=== PATIENT | female | born 1945 | race Caucasian/White ===

== ENCOUNTER 2020-07-10 01:46 | Outpatient (CLI) | payer MEDICARE, BC, SELFPAY ==
--- NOTE | 2020-07-10 08:45 | DI.DEXA_ITS ---
EXAM: XR DEXA BONE DENSITY W/WO ARELY CLINICAL HISTORY: osteoporosis,M81.0 TECHNIQUE: HoloTrusper Horizon C densitometer. COMPARISON: Exams from 2006 through 2010 FINDINGS: The lateral view of the thoracic and lumbar spine shows no evidence of compression fractures. The ayan ne mineral density measurements of the right hip correspond of -2.6 and a femoral neck T-score of -2. 5, in the osteoporotic range. This represents a 6.6 percent increase when compared with 2010 and a 7 .7 percent increase when compared with 2006. The bone mineral density measurements of the lumbar spine correspond to a total T-score of -3.3, in t he osteoporotic range.. The overall bone mineral density of the lumbar spine has increased 13.6 perc ent when compared with 2010 and 24.1 percent increase compared with 2005. The left forearm bone mineral density measurements correspond to a T-score of the the distal 3rd of n egative -4.5 and a total T-score of -4.7, in the osteopenic range. This is not significantly changed from the previous exams. IMPRESSION: Osteoporosis of the lumbar spine and left hip with increase in density when compared with previous ex ams. Stable osteoporosis of the left forearm.
== END 2020-07-10 01:47 ==
LOC: DI 01:46
PROVIDERS: PCP Family Medicine; Visit Provider Family Medicine
DX: M81.0 Age-related osteoporosis without current pathological fracture (principal)
CPT/HCPCS: 77080

== ENCOUNTER 2020-07-10 02:54 | Outpatient (CLI) | payer MEDICARE, BC, SELFPAY ==
[2020-07-10 15:05] LABS: ALT 22 U/L (14-59); AST 26 U/L (15-37); Albumin 4.4 g/dL (3.4-5.0); Alkaline Phosphatase 85 U/L (46-116); Anion Gap 10.2 mmol/L (3-11); BUN 18 mg/dL (7-18); Bilirubin, Total 0.6 mg/dL (0.2-1.0); CO2 26.8 mmol/L (21.0-32.0); CREATININE 0.9 mg/dL (0.55-1.02); Chloride 101 mmol/L (98-107); Glucose 104 mg/dL (74-106); Potassium 4.3 mmol/L (3.5-5.1); Sodium 138 mmol/L (136-145); TSH (W/Ref FT4) 1.79 uIU/mL (0.36-3.74); Total Protein 8.3 g/dL (6.4-8.2)
[2020-07-10 15:20] LABS: Vitamin D 25 Total 42.7 ng/ml (30-100)
[2020-07-11 10:47] LABS: Parathyroid Hormone,Intact 83 pg/mL (19-88)
== END 2020-07-10 02:55 | disposition home or self-care (01) ==
LOC: LBO 02:54
PROVIDERS: PCP Family Medicine; Visit Provider Family Medicine
DX: I10 Essential (primary) hypertension (principal); G47.9 Sleep disorder, unspecified; M81.0 Age-related osteoporosis without current pathological fracture; L40.9 Psoriasis, unspecified; R68.89 Other general symptoms and signs
CPT/HCPCS: 36415; 77080; 80053; 82306; 83970; 84443

== ENCOUNTER 2020-10-16 15:40 | Outpatient (CLI) | payer MEDICARE, BC, SELFPAY ==
--- NOTE | 2020-10-16 15:30 | RT.EKG_ITS ---
APPROVED REPORT Exam: Resting ECG Reason for Exam: Chest Heavy Dizziness Patient Location: O HR:74 bpm ECG Measurements Heart Rate 74 AXIS CA 198 P 60 QRSd 83 QRS 36 QT 398 T 67 QTc 441 Conclusion Sinus rhythm...normal P axis, V-rate 60- 99
[2020-10-16 21:35] LABS: Anion Gap 9.1 mmol/L (3-11); BUN 32 mg/dL (7-18); CO2 25.9 mmol/L (21.0-32.0); CREATININE 0.9 mg/dL (0.55-1.02); Calcium 9.2 mg/dL (8.5-10.1); Chloride 94 mmol/L (98-107); Glucose 94 mg/dL (74-106); Sodium 129 mmol/L (136-145)
== END 2020-10-16 15:41 | disposition home or self-care (01) ==
LOC: DI.CM 15:41
PROVIDERS: PCP Family Medicine; Visit Provider Nurse Practitioner Family
DX: R07.89 Other chest pain (principal); E87.1 Hypo-osmolality and hyponatremia
CPT/HCPCS: 80048; 93010

== ENCOUNTER 2020-10-17 13:38 | Outpatient (CLI) | payer MEDICARE, BC, SELFPAY ==
[2020-10-17 14:19] LABS: Bilirubin Negative (Negative); Blood Negative (Negative); Clarity Clear (Clear); Glucose Negative (Negative); Ketones Negative (Negative); Leukocyte Esterase Trace (Negative); Nitrite Negative (Negative); Specific Gravity 1.015 (1.005-1.025); Urobilinogen 0.2 EU/dL (Up TO 0.2); pH 5.5 (5-8)
[2020-10-17 14:27] LABS: Bacteria Rare HPF (Negative); C & S Indicated? Yes; Casts Negative LPF (Negative); Crystals Negative HPF (Negative); Epithelial Cells Rare HPF (Negative); Mucus Negative (Negative); RBC 0-2 HPF (0-2)
[2020-10-17 15:38] LABS: CREATININE 0.8 mg/dL (0.55-1.02); Calcium 9.2 mg/dL (8.5-10.1); Chloride 92 mmol/L (98-107); Glucose 92 mg/dL (74-106); Sodium 128 mmol/L (136-145)
[2020-10-17 15:39] LABS: BUN 22 mg/dL (7-18)
== END 2020-10-17 13:39 | disposition home or self-care (01) ==
LOC: LBO 13:39
PROVIDERS: PCP Family Medicine; Visit Provider Physician Assistant
DX: E87.1 Hypo-osmolality and hyponatremia (principal); R82.998 Other abnormal findings in urine
CPT/HCPCS: 36415; 80048; 81003; 81015; 87086

== ENCOUNTER 2020-10-22 04:30 | Outpatient (CLI) | payer MEDICARE, BC, SELFPAY ==
[2020-10-22 16:37] LABS: Anion Gap 8.3 mmol/L (3-11); BUN 21 mg/dL (7-18); CO2 25.7 mmol/L (21.0-32.0); Calcium 9.3 mg/dL (8.5-10.1); Chloride 104 mmol/L (98-107); Estimated GFR 53.76 (mL/min/1.73m2); Glucose 89 mg/dL (74-106); Potassium 4.4 mmol/L (3.5-5.1); Sodium 138 mmol/L (136-145)
== END 2020-10-22 04:31 | disposition home or self-care (01) ==
LOC: LBO 04:30
PROVIDERS: PCP Family Medicine; Visit Provider Family Medicine
DX: E87.1 Hypo-osmolality and hyponatremia (principal)
CPT/HCPCS: 36415; 80048

== ENCOUNTER 2021-06-16 16:32 | Outpatient (REF) | payer MEDICARE, SELFPAY ==
[2021-06-18 15:26] LABS: Creatinine, U 36 mg/dL; NTX 80 nmol/L; NTX-Telopedptide, U 25 nmol/mmol
== END 2021-06-16 16:33 | disposition home or self-care (01) ==
LOC: LBN 16:32
PROVIDERS: PCP Family Medicine; Visit Provider Internal Medicine Rheumatology
DX: M81.8 Other osteoporosis without current pathological fracture (principal)
CPT/HCPCS: 82523

== ENCOUNTER 2021-12-01 03:09 | Outpatient (CLI) | payer MEDICARE, SELFPAY ==
[2021-12-01 12:38] LABS: ALT 23 U/L (14-59); AST 22 U/L (15-37); Albumin 3.5 g/dL (3.4-5.0); Alkaline Phosphatase 65 U/L (46-116); Anion Gap 6.9 mmol/L (3-11); BUN 21 mg/dL (7-18); Bilirubin, Total 0.3 mg/dL (0.2-1.0); CO2 26.1 mmol/L (21.0-32.0); CREATININE 0.8 mg/dL (0.55-1.02); Calcium 8.9 mg/dL (8.5-10.1); Chloride 102 mmol/L (98-107); Glucose 85 mg/dL (74-106); Potassium 3.9 mmol/L (3.5-5.1); Sodium 135 mmol/L (136-145); Total Protein 6.9 g/dL (6.4-8.2)
== END 2021-12-01 03:10 | disposition home or self-care (01) ==
LOC: LOS 03:10
PROVIDERS: PCP Family Medicine; Visit Provider Family Medicine
DX: E87.1 Hypo-osmolality and hyponatremia (principal); I10 Essential (primary) hypertension
CPT/HCPCS: 36415; 80053

== ENCOUNTER → 2022-03-16 09:51 | Outpatient (BNVA) | payer MEDICARE, SELFPAY | PROVIDERS: PCP Family Medicine; Referring Provider Family Medicine; Visit Provider Surgery | DX: Z12.11 Encounter for screening for malignant neoplasm of colon (principal); Z12.12 Encounter for screening for malignant neoplasm of rectum; R19.5 Other fecal abnormalities ==

== ENCOUNTER 2022-03-24 10:09 | Observation (INO) | payer MEDICARE, SELFPAY ==
[2022-03-24] VITALS (9 sets, daily range): BP systolic 100–136; BP diastolic 63–89; PULSE 62–114; RESP 16–18; TEMP 36.3–37.2; O2SAT 96–99; BMI 23.3
--- NOTE | 2022-03-24 06:20 | COLE_ITS ---
Date of service: 03/24/22 Time of Service: 08:17 Colonoscopy Report Date of procedure: 03/24/22 Pre-op diagnosis general: + Cologuard test Post-op diagnosis procedure note: other (polyps and diverticulosis) Procedure: Colonoscopy with polypectomy Surgeon: Izabella Wesley Anesthesia Type: General:No Airway Estimated blood loss (mL): 3 Pathology: other (cecal polyps and ascending polyps x2) Complications: None Disposition: same day Indications: The patient? is a pleasant ? 77-year-old female who is here to discuss a screening colonoscopy. ? She had a positive Cologuard test.? She denies any changes in bowel habits, melena, hematochezia, unintentional weight loss or family history of colon cancer.? The procedure and risks were discussed.? The prep was reviewed in detail.? Risks, benefits and complications have been reviewed. Complications include but are not limited to bleeding, pain, perforation, missed small lesion/polyp, sore throat, aspiration and adverse reaction to the medications. Questions were entertained and answered to their satisfaction and they wished to proceed. No guarantees were given or implied. Prep: Miralax/Dulcolax Procedure Start Time: :17 Procedure End Time: 08:40 Retraction Time: 14 minutes Findings: 3 polyps mild diverticulosis Procedure Description: After informed consent was obtained the patient was taken to the procedure room and placed in a left decubitous position. Monitors were applied and a time out was done. The patients name, date of , procedure, allergies to medications and metal in their body was reviewed. The patient was then sedated. Once sedated and comfortable a rectal exam was done. External exam was normal. Internal exam revealed a normal sphincter tone and no palpable masses. The scope was then introduced and retro-flexed. No internal hemorrhoids, polyps or masses were identified on retro-flexion. The scope was then advanced to the cecum without difficulty. The ileocecal valve and appendiceal orifice were identified. The prep was good. The scope was then slowly retracted over 14 minutes back into the rectum. Polyps were removed with cold forceps in the cecum (ileocecal valve) and ascending colon x2. There was mild sigmoid diverticulosis noted. The scope was removed and the patient was woken up and taken back to Same day surgery in stable condition. The patient tolerated the procedure well and there were no immediate complicatio ns. .
--- NOTE | 2022-03-24 06:21 | PDOC.DSDIS_ITS ---
Date of service: 03/24/22 Time of Service: 08:49 Discharge Plan Disposition Patient Disposition: HOME Condition: Good Discharge Details Reason For Visit: colonoscopy Attending Provider: Izabella Wesley Primary Care Provider: Lizzy Marin Home Meds and New Rx's Prescriptions: Continued triamcinolone acetonide 0.1 % cream 1 applic topical BID Qty: 80 0RF Rx Instructions: apply to psoriasis lisinopril 20 mg tablet 20 mg PO DAILY Qty: 90 5RF Discontinued bisacodyl [Dulcolax (bisacodyl)] 5 mg tablet,delayed release (DR/EC) 5 mg PO ONCE Qty: 4 0RF Rx Instructions: Take according to provider's instructions for colonoscopy prep. polyethylene glycol 3350 17 gram/dose powder 17 g PO ONCE Qty: 238 0RF Rx Instructions: To be taken as directed by prescriber's office for colonoscopy prep. Discharge Instructions Instructions: Colorectal Polyps (DC), Diverticulosis (DC) Additional Instructions: Findings: 3 polyps mild diverticulosis Follow up: will depend on pathology results Please call if you develop: fevers >101.5 Nausea or Vomiting Abdominal pain that is not transient Rectal bleeding that is more then a tbsp A hard abdomen and inability to pass gas DAY SURGERY UNIT POST ENDOSCOPY INSTRUCTIONS Instructions for everyone who is given Anesthesia: For your safety, please do the following for the next 24 Hours: a. Do not drive or operate dangerous equipment b. Do not drink alcohol beverages or use any recreational drugs for the first 24 hours or while taking pain medications. The medications in your body may have a reaction that can be dangerous. c. Do not make any important decisions or sign any important papers 1. Generally there are no restrictions on your activity after a day or so has gone by, but you may feel a bit fatigued for a few days. 2. After you arrive home you may have a light meal and return to a normal diet as you can tolerate it without feeling sick to your stomach. 3. After surgery, you may feel pain or discomfort. This should be only tra nsient, but if it persists please contact your doctor. 4. If there are any questions regarding the findings of your procedure, please feel free to contact your doctor. 6. If you are unable to contact your doctor with a problem, contact the hospital at [phone]. 7. Continue all your regular medications unless directed otherwise. I understand the above instructions and have no questions. Signature of Patient or Responsible Adult Escort Date/Time Name of Responsible Adult Escort Signature of Nurse Date/Time Activity:: Activity as Tolerated Diet:: high fiber diet Discharge Orders Discharge Orders: Discharge Order (Routine); Ordered 03/24/22 Ordered By: Izabella Wesley
[2022-03-24] MEDS: Lactated Ringers 1,000 ML 80 ML IV (07:28)
--- NOTE | 2022-03-24 07:33 | W.ANESPRE ---
General Info Date of Service Date Performed: 03/24/22 Height: 5 ft 4 in Weight: 61.6 kg Body Mass Index (BMI): 23.3 Surgical Procedure: Operation Date: 03/24/22 08:20 Proposed Procedure Side Surgeon donell Wesley MD Meds Allergies and Home Medications Allergies Allergy/AdvReac Type Severity Reaction Status Date / Time No Known Allergies Allergy Verified 03/24/22 07:08 Home Medication Medication Instructions Recorded triamcinolone acetonide 0.1 % 1 applic topical BID #80 grams 10/15/21 topical cream lisinopril 20 mg tablet 20 mg PO DAILY #90 tabs 12/07/21 bisacodyl 5 mg tablet,delayed 5 mg PO ONCE #4 tabs 03/16/22 release (Dulcolax (bisacodyl)) polyethylene glycol 3350 17 17 g PO ONCE #238 grams 03/16/22 gram/dose oral powder Current Visit Medications: Current Medications Generic Name Dose Route Start Last Admin Trade Name Freq PRN Reason Stop Dose Admin Hyoscyamine Sulfate 0.125 mg 03/24/22 06:22 Hyoscyamine 0.125 Mg Sl/Oral/Chew SL DIRECTED PRN Ringer's Solution 1,000 mls @ 80 mls/hr 03/24/22 06:00 03/24/22 07:28 IV 04/22/22 23:59 80 mls/hr INFUSION ZULAY Administration IV Miscellaneous Supplies 1 each 03/24/22 06:00 Iv Access IV 04/22/22 23:59 DIRECTED ZULAY Ondansetron HCl 4 mg 03/24/22 06:22 Ondansetron 4 Mg/2 Ml Vial IVP Q4H PRN PRN Nausea / Vomiting Sodium Chloride 0 ml 03/24/22 06:00 Normal Saline Flush 10 Ml Syr IV 04/22/22 23:59 PRN PRN Sodium Chloride 0 ml 03/24/22 06:00 Normal Saline 10 Ml Vial IJ 04/22/22 23:59 DIRECTED PRN Sterile Water 0 ml 03/24/22 06:00 Water,Injection,Sterile 10 Ml Vial IJ 04/22/22 23:59 DIRECTED PRN PFSH Active Problems Active Problems: Problem Status Onset Code Throat disorder 05/12/17 J39.2 Throat clearing 05/12/17 R68.89 Sleep disorder 06/02/15 G47.9 Sensory hearing loss, 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 Reflux esophagitis 07/04/17 K21.0 Psoriasis 09/02/14 L40.9 Osteoporosis M81.0 GERD (gastroesophageal reflux disease) 07/14/17 K21.9 Essential hypertension 08/29/13 I10 Actinic keratoses L57.0 Finger deformity, acquired M20.009 Hyponatremia E87.1 Positive colorectal cancer screening using Cologuard test R19.5 Encounter for colorectal cancer screening Z12.11, Z12.12 Surgical History Surgical History (Updated 03/24/22 @ 07:07 by Shawanda Mckeon) History of colonoscopy History of parathyroidectomy (06/02/15) Parathyroidectomy Tobacco Smoking/Tobacco Use Status: Former Tobacco Use Passive smoking exposure: Yes Second hand exposure: Yes Alcohol Alcohol Intake: current Alcohol intake frequency: a few times a week Alcohol type: wine Substance Use Substance use: Never Substance use type: does not use Vital Signs and Lab Results Vital Signs Most Recent Vital Signs in EMR: Most Recent Vital Signs Temp Pulse Resp BP Pulse Ox 36.4 C L 62 18 125/79 99 03/24/22 07:00 03/24/22 07:00 03/24/22 07:00 03/24/22 07:00 03/24/22 07:00 Lab Results Blood Type / Crossmatch: No Data to Display Complete Blood Count: No Data to Display Complete Metabolic Panel: No Data to Display Liver Function Panel: No Data to Display Coagulation Panel: No Data to Display Cardiac Panel: No Data to Display Arterial Blood Gas: No Data to Display Venous Blood Gas: No Data to Display Pancreas Panel: No Data to Display Thyroid Panel: No Data to Display Infectious Disease: No Data to Display Blood Cultures: No Data to Display Toxicology Panel: No Data to Display Imaging and Studies Imaging and Studies Study information below may be from another EMR and interpreted by another provider. Please see original notes in EMR for more complete details. EKG Summary: DATE/TIME OF SERVICE: 10/16/201601 : 3PERFORMING LOCATION: [facility] APPROVED REPORT Exam: Resting ECG Reason for Exam: Chest Heavy Dizziness Patient Location: O HR:74 bpm ECG Measurements Heart Rate 74 AXIS DE 198 P 60 QRSd 83 QRS 36 QT 398 T67 QTc 441 Conclusion Sinus rhythm...normal P axis, V-rate 60- 99 Anesthesia Assessment and Plan Anesthesia History Personal History: No History of Anesthesia Complications Family History: No Family History of Anesthesia Complications Exercise Tolerance Exercise Tolerance: Metabolic Equivalents>4 Pertinent Negatives Pertinent Negatives: No Symptoms of GERD Cardiac & Pulmonary Exam Cardiac Exam: Normal S1/S2 Heart Sounds Pulmonary Exam: Clear Bilateral Breath Sounds Implantable Cardiac Device Does patient have a Pacemaker or an ICD?: No Airway Exam Known Difficult Airway: No Mallampati Class: 2 Mouth Opening: Normal (> 3cm) Thyromental Distance: Greater than 3 cm Neck Range of Motion: Full ROM Neck Circumference: Normal Teeth Condition: Normal Dentition ASA Classification ASA Score: ASA 2 Emergency Case?: No NPO Status NPO Status: NPO Clears >2 hours, Solids >8 hours Anesthesia Plan Resuscitation Status: Full Code Anesthesia Technique: General Anesthesia Airway Planned: Natural Airway Monitors Used: Standard Monitors
--- NOTE | 2022-03-24 08:26 | BOWEL_PTH ---
PATIENT: Annetta Ramirez LOC: U#:[id number] AGE/SX: 77/F ROOM: 226 RE03/24/[address]: Izabella Wesley MD : 1945 BED: A DIS: 03/25/2022 SPEC #: [id number] RECD: 03/24/22 13:04 STATUS: JUSTICELynne RE #: [id number] MAREK: 03/24/22 08:[address]: Izabella Wesley DEPT: Surgical Specimen RECD BY: Eileen Israel ENTERED: 03/24/22 13:05 SP TYPE: Bowel OTHR DR: Lizzy Marin MD, DC Tissues: 1 - BIOPSY BOWEL 2 - BIOPSY BOWEL Procedures: GROSS AND MICRO LEVEL 4 Comments: [id number]
--- NOTE | 2022-03-24 08:30 | RT.EKG_ITS ---
APPROVED REPORT Exam: Resting ECG Reason for Exam: R/o a-fib Patient Location: O HR:107 bpm ECG Measurements Heart Rate 107 AXIS DE [id number] P [id number] QRSd 78 QRS 35 QT 339 T -36 QTc 453 Conclusion Atrial flutter/fibrillation...A-rate 380, multiple Ps Anteroseptal infarct, age indeterminate...Q >35mS, T neg, V1-V2
--- NOTE | 2022-03-24 10:11 | W.ANESPOSTOP ---
Postoperative Evaluation Date, Time and Location Date Performed: 03/24/22 Time Performed: 10:11 Patient Location: Day Surgery Unit Vital Signs Most Recent Imported Vital Signs: Most Recent Vital Signs Temp Pulse Resp BP Pulse Ox 36.3 C L 108 H 18 103/70 96 03/24/22 09:15 03/24/22 09:15 03/24/22 09:15 03/24/22 09:15 03/24/22 09:15 Pain Score Most Recent Pain Score: Most Recent Pain Score Pain Level 0 03/24/22 09:15 Assessment Mental Status: Awake (Alert & Oriented to Patient Baseline) Airway and Respiratory Function: Patent airway with normal (patient baseline) respiratory exam Cardiovascular Function: Hemodynamically Stable Hydration Status: Adequately Hydrated Nausea & Vomiting: No Nausea or Vomiting Pain: Pt. Denies Any Pain Peripheral Nerve Block: Patient did not receive a nerve block Postoperative Comments:: Pt. will be admitted for new onset atrial fibrillation and worked up by hospitalist. She denies any a-fib history, other than family history of. Denies any associated symptoms (SOB/chest pain etc.). This may have been throughout the case, however due to EKG artifact, it was hard to tell.
--- NOTE | 2022-03-24 10:17 | W.PM.HP.N ---
Date of service: 03/24/22 Time of Service: 10:17 Assessment and Plan Assessment and plan (1) New onset a-fib: Status: Acute Assessment and plan: Discussed case with Dr. Rehman. He feels she should be admitted for obs at least and have a troponin and echo done. He has just admitted 2 ICU patients. I will admit the patient and consult him. Discussed the plan with Annetta. Labs and ECHO ordered (2) Essential hypertension: Status: Chronic (3) GERD (gastroesophageal reflux disease): Status: Chronic History of Present Illness Narrative: Annetta is a pleasant 77-year-old female who came to the hospital this morning for a colonoscopy. During the colonoscopy she was noted to be in A. fib. Once she woke up from the sedation she continued to be in A. fib an EKG was done. Patient did not complain of chest pain or shortness of breath. She has never had A. fib before. She does tell me that her mother and brother both had A. fib. She takes a small dose of lisinopril for hypertension and that is her only medication. She has never noticed any palpitations. She is quite an active 77-year-old who does a lot of gardening and walking. EKG confirmed atrial fibrillation/atrial flutter with a question of anterior lateral infarct which might have been old. Review of Systems All systems reviewed & are unremarkable except as noted in HPI and below PFSH All Active Problems (Updated 03/24/22 @ 13:06 by Izabella Wesley MD) New onset a-fib (Acute) Throat disorder (Acute 05/12/17) Throat clearing (Acute 05/12/17) Sleep disorder (Chronic 06/02/15) Sensory hearing loss, 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) Reflux esophagitis (Chronic 07/04/17) Psoriasis (Chronic 09/02/14) Osteoporosis (Chronic) Dexa/2005-T-4.5; 2007 T-4.3; 2009-T-4.2; 2011--4.7 SEES SUNNI GERD (gastroesophageal reflux disease) (Chronic 07/14/17) Essential hypertension (Chronic 08/29/13) Actinic keratoses (Acute) Finger deformity, acquired (Acute) Hyponatremia (Acute) Positive colorectal cancer screening using Cologuard test (Acute) Encounter for colorectal cancer screening (Acute) Surgical History (Updated 03/24/22 @ 13:04 by Izabella Wesley MD) History of colonoscopy History of parathyroidectomy (06/02/15) Parathyroidectomy S/P colonoscopy (~03/24/22) Family History Mother , 68 Depression Bladder cancer Father , 83 Heart disease PACEMAKER Stroke MILD Pancreatic cancer Sister Stroke TIA Brother Heart disease Myocardial infarction Maternal Grandfather , 84 Myocardial infarction Parkinson's disease Paternal Grandfather , 86 Heart disease Parkinson's disease Paternal Grandmother Heart disease A-FIB Depression Daughter Depression Brother No problems noted. Brother No problems noted. Daughter No problems noted. Social History Smoking/Tobacco Use Status: Former Tobacco Use tobacco type: cigarettes Quit Date: 05/30/1964 Tobacco: How many years used: 4 Second Hand Exposure: Yes Smoking risk assessment performed?: Yes Alcohol Intake: current Alcohol Intake frequency: a few times a week Alcohol type: wine Drug use: Never Substance use type: does not use Caregiver/Support person: No Household members: none Housing: house Communication Needs: None and Hard of Hearing Do you need help understanding health information?: Rarely Pets and animals: No Sexually active: No Do you think of yourself as: straight/heterosexual Current gender identity: female What is your relationship status?: How often do you talk on the phone with friends or family?: three or more times per week How often do you get together with friends or relatives?: three or more times per week How often do you attend samaritan or scientology services?: 4 or more times per year Do you belong to any clubs or organized social groups?: yes Panel score (0-1 are the most socially isolated patients): 3 What type of physical activity do you participate in: walking and other Details: [employer], PT gym, snowshoeing Duration: 30-45 minutes/day Frequency: 5-6 times per week Laxmi/Roman Catholic: Hoahaoism Special laxmi needs: No Seatbelt use: always Helmet use: Yes Helmet use: sometimes Drive intox or ride w/intox seasonal delivery driver: No Do you feel safe at home: Yes Do you feel safe in your relationship?: Yes Meds Allergies and Home Medications Allergies Allergy/AdvReac Type Severity Reaction Status Date / Time No Known Allergies Allergy Verified 03/24/22 07:08 Home Medications Medication Instructions Recorded Confirmed Type triamcinolone acetonide 0.1 % 1 applic topical BID #80 grams 10/15/21 03/23/22 Rx topical cream lisinopril 20 mg tablet 20 mg PO DAILY #90 tabs 12/07/21 03/24/22 Rx Exam Const General: comfortable and no acute distress HENMT Head: normocephalic and atraumatic Resp Effort & Inspection: normal respiratory effort Auscultation: clear to auscultation bilaterally Cardio Rate: regular rate and tachycardic Rhythm: abnormal rhythm Results Imaging Additional studies: ECHO- pending Labs Result diagrams: 03/24/22 10:49 03/24/22 10:49 Last Vital Signs Temp 97.3 F L 03/24/22 09:15 Pulse 108 H 03/24/22 09:15 Resp 18 03/24/22 09:15 BP 103/70 03/24/22 09:15 Pulse Ox 96 03/24/22 09:15
[2022-03-24 10:28] LABS: Source Nasal/Nares
[2022-03-24 10:56] LABS: Abs Immature Grans 0.01 10^3/uL (0.0-0.06); Absolute Basophil Count 0.06 10^3/uL (0.0-0.2); Absolute Eosinophil Count 0.07 10^3/uL (0.0-0.7); Absolute Lymphocyte Count 1.11 10^3/uL (1.2-3.4); Absolute Monocyte Count 0.26 10^3/uL (0.1-0.8); Absolute Neutrophil Count 2.56 10^3/uL (1.2-6.7); Basophils % 1.5; Eosinophils % 1.7; HCT 41.2 % (36.0-46.0); HGB 13.2 g/dL (11.2-15.7); Immature Grans % 0.2; Lymphocytes % 27.3; MCH 30.6 pg (27.0-33.0); MCV 95 fL (80-95); MPV 10.6 fL (8.0-11.0); Monocytes % 6.4; Neutrophils % 62.9; Platelet Count 187 10^3/uL (130-400); RBC 4.32 10^6/uL (3.93-5.22); RDW 13.2 % (11.7-14.6); RDW-SD 46.9 fL; WBC 4.07 10^3/uL (4.4-10.8)
[2022-03-24 11:11] LABS: PTT Activated 24.5 sec (21.0-27.5); Prothrombin Time 10.4 sec (9.3-11.0)
[2022-03-24 11:14] LABS: ALT 17 U/L (14-59); AST 21 U/L (15-37); Albumin 3.5 g/dL (3.4-5.0); Alkaline Phosphatase 77 U/L (46-116); Anion Gap 7.3 mmol/L (3-11); BUN 12 mg/dL (7-18); Bilirubin, Total 0.4 mg/dL (0.2-1.0); CO2 23.7 mmol/L (21.0-32.0); CREATININE 0.8 mg/dL (0.55-1.02); Calcium 9.4 mg/dL (8.5-10.1); Chloride 104 mmol/L (98-107); Glucose 101 mg/dL (74-106); Potassium 4.2 mmol/L (3.5-5.1); Sodium 135 mmol/L (136-145); Total Protein 7.5 g/dL (6.4-8.2)
[2022-03-24 11:16] LABS: COVID-19 PCR Negative (Negative)
[2022-03-24 11:19] LABS: Troponin I < 50 ng/L (<or=60)
--- NOTE | 2022-03-24 11:43 | NUR.NOTE ---
Nursing Note: It was found during colonoscopy procedure that pt was in Afib. Pt was transferred to [facility] for additional testing including lab work and echo cardiogram. Pt is asymptomatic , denying chest pain ,sob or palpitations. Dr Wesley in to see pt.
[2022-03-24 14:43] LABS: Troponin I < 50 ng/L (<or=60)
--- NOTE | 2022-03-24 16:48 | PDOC.CMIN ---
- If Service Date Differs Date of service: 03/24/22 Time of Service: 16:48 Care Management Initial Assess REASON FOR HOSPITALIZATION:: New onset A-Fib PAST MEDICAL HISTORY/PAST SURGICAL HISTORY:: Medical History . Acute deep vein thrombosis (DVT) of right lower extremity. most recent DVT in right foot 04/25/20. Amaurosis fugax, right eye. 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 NOLAN (dyspnea on exertion). Family history of multiple endocrine neoplasia [MEN] syndrome. 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 Headache. History of melanoma. Hypertension. Iritis. Ketonuria. Knee pain, right. Localized swelling of right lower leg. Loss of vision. Pt. reports for last month he has had occasional loss of vision in R eye. Pt. states PCP and opthamologist are working on it, no diagnosis at this time. Everardo Cerrato, [employer] G[employer] SERVICE AGENT, aware. 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 Obesity. Pain in right lower leg. Pleural effusion, right. Right upper quadrant abdominal pain. Right-sided chest pain. Tinnitus, right. Tremor. Unexplained weight loss. Surgical History . Colonoscopy - IV Sedation. 2008- normal. EGD - MAC (10/04/16). Hx of detached retina repair. Hx of melanoma excision. Thoracentesis (01/12/18) PREVIOUS FUNCTIONAL STATUS/SOCIAL/FAMILY SUPPORTS:: Jailene has refused mulitple interventions including use of IS, CPAP. Eliquis recommended upon discharge; discussion with PCP/RNCC regarding patient's hesitancy, Dr. Marin will discuss upon follow up on 04/01/22. CURRENT FUNCTIONAL STATUS:: Jailene is preparing for discharge, up independently, looking forward to returning home. ADVANCE DIRECTIVES:: AD on file, Jailene reports NAMITA Bradshaw. AD document states agent as Halima, alternate as Yadi Has patient been provided with info about the portal/API?: Yes Did the patient sign up for the portal?: Yes CODE STATUS:: Full Code INSURANCE COVERAGE / FINANCIAL ISSUES:: BC/BS [facility] Advantage PRIMARY CARE PHYSICIAN:: Lizzy Marin POTENTIAL DISCHARGE NEEDS:: Follow up appointments (PCP F/U in 04/01/22) PATIENT/FAMILY EDUCATION NEEDS:: Review discharge instructions, discuss Ask Me Three. ANTICIPATED BARRIERS TO DISCHARGE:: None identified. TRANSPORTATION:: Via private vehicle with a friend. PLAN:: Anticipate Jailene will return home when ready per MD. Awaiting ECHO, troponin trend, per MD. No additional services anticipated, she will follow up with her PCP and plan of care as prescribed.
[2022-03-24 18:40] LABS: Lab Add On Test DONE
[2022-03-24 19:04] LABS: TSH 3.03 uIU/mL (0.36-3.74)
--- NOTE | 2022-03-24 20:26 | MCONE_ITS ---
Date of service: 03/24/22 Time of Service: 20:26 Assessment and Plan Assessment and plan (1) Paroxysmal A-fib: Status: Acute Assessment and plan: Monitor on telemetry overnight and set her up for 30-day cardiac event recorder upon discharge. Arrange outpatient follow-up with Dr. Rivera. Recommend out patient PSG and stress MPI. Patient will consider DOAC use and discuss w/ cardiology. No need to begin BB urgently, can get event recorder first. History of Present Illness History of Present Illness Chief Complaint: atrial fibrillation Narrative: 77 yr old female w/ PMH of colon polyps and HTN but otherwise no cardiac hx. She underwent elective c-scope this morning by Dr. Wesley for polyp surveillance. Procedure went well but patient went into PAF w/ HR in the 90's to low 100's. She never was hypotensive. Dr. Wesley came to me for advice on post operative management of this sudden change in her rhythm. I advised her to admit her on telemetry overnight, check echocardiogram and TSH and serial troponin I levels and monitor her overnight and if need be we can start her on lopressor. Patient denies any chest pain or pressure or dyspnea. Her atrial fibrillation rhythm spontaneously converted to NSR @ 11:48 am and she has remained in NSR. I reviewed all of her labs and echocardiogram w/ the patient. She has normal LV and RV size and function w/ no valvular abnormalities and no regional wall motion abnormalities. LVEF is 69%. TSH is normal and CBC and CMP and magnesium and troponin I levels were all normal. She does not have COPD and her TSH was normal and echo showed no structural abnormalities, however, she tells me that around 2009 she had a sleep study for which she says was equivocal and was told that she could go on CPAP but she chose not to do so . I am recommending her getting a 30 day event recorder, follow up w/ cardiology as outpatient and to consider going on a DOAC. I did her [id number] score is 4 which puts her at high risk for thromboembolic events. Her annual risk of stroke w/ use of Apixaban is 1.7% which is absolute risk redu ction of 4.8% i.e. w/out apixaban her risk is 6.5%. I think that she ought to have follow up PSG to re-evaluate her possible EBONY. She also needs stres MPI. 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) Reflux esophagitis (Chronic 07/04/17) Psoriasis (Chronic 09/02/14) Osteoporosis (Chronic) Dexa/2005-T-4.5; 2007 T-4.3; 2009-T-4.2; 2011--4.7 SEES SUNNI GERD (gastroesophageal reflux disease) (Chronic 07/14/17) Essential hypertension (Chronic 08/29/13) Actinic keratoses (Acute) Finger deformity, acquired (Acute) Hyponatremia (Acute) Positive colorectal cancer screening using Cologuard test (Acute) Encounter for colorectal cancer screening (Acute) Surgical History History of colonoscopy History of parathyroidectomy (06/02/15) Parathyroidectomy S/P colonoscopy (~03/24/22) Family History Mother , 68 Depression Bladder cancer Father , 83 Heart disease PACEMAKER Stroke MILD Pancreatic cancer Sister Stroke TIA Brother Heart disease Myocardial infarction Maternal Grandfather , 84 Myocardial infarction Parkinson's disease Paternal Grandfather , 86 Heart disease Parkinson's disease Paternal Grandmother Heart disease A-FIB Depression Daughter Depression Brother No problems noted. Brother No problems noted. Daughter No problems noted. Social History Smoking/Tobacco Use Status: Former Tobacco Use tobacco type: cigarettes Quit Date: 05/30/1964 Tobacco: How many years used: 4 Second Hand Exposure: Yes Smoking risk assessment performed?: Yes Alcohol Intake: current Alcohol Intake frequency: a few times a week Alcohol type: wine Drug use: Never Substance use type: does not use Caregiver/Support person: No Household members: none Housing: house Communication Needs: None and Hard of Hearing Do you need help understanding health information?: Rarely Pets and animals: No Sexually active: No Do you think of yourself as: straight/heterosexual Current gender identity: female What is your relationship status?: How often do you talk on the phone with friends or family?: three or more times per week How often do you get together with friends or relatives?: three or more times per week How often do you attend spiritism or scientology services?: 4 or more times per year Do you belong to any clubs or organized social groups?: yes Panel score (0-1 are the most socially isolated patients): 3 What type of physical activity do you participate in: walking and other Details: [employer], PT gym, snowshoeing Duration: 30-45 minutes/day Frequency: 5-6 times per week Laxmi/Muslim: Religion Special laxmi needs: No Seatbelt use: always Helmet use: Yes Helmet use: sometimes Drive intox or ride w/intox public transit bus driver: No Do you feel safe at home: Yes Do you feel safe in your relationship?: Yes Exam Narrative Exam Narrative: Thin pleasant elderly female who is alert and oriented person place time circumstance. HEENT is unremarkable Neck is supple nontender no JVD normal carotid pulses no thyromegaly Lungs are clear to auscultation Heart is regular rate and rhythm without murmur rub or gallop Abdomen soft and nontender Extremities without peripheral cyanosis or edema. Results Last Vital Signs Temp 36.5 C 03/24/22 19:57 Pulse 86 03/24/22 19:57 Resp 18 03/24/22 19:57 BP 136/89 03/24/22 19:57 Pulse Ox 96 03/24/22 19:57 Labs Result diagrams: 03/24/22 10:49 03/24/22 10:49 Labs: Laboratory Results - last 24 hr 03/24/22 03/24/22 03/24/22 10:13 10:49 10:49 WBC 4.07 L RBC 4.32 Hgb 13.2 Hct 41.2 MCV 95 MCH 30.6 MCHC 32.0 RDW 13.2 Plt Count 187 MPV 10.6 Immature Gran % 0.2 Neutrophils % 62.9 Lymphocytes % 27.3 Monocytes % 6.4 Eosinophils % 1.7 Basophils % 1.5 Nucleated RBC % 0.0 Absolute Neutrophils 2.56 Absolute Lymphocytes 1.11 L Absolute Monocytes 0.26 Absolute Eosinophils 0.07 Absolute Basophils 0.06 PT INR APTT Sodium 135 L Potassium 4.2 Chloride 104 Carbon Dioxide 23.7 Anion Gap 7.3 BUN 12 Creatinine 0.8 Est GFR (CKD-EPI 2020) 74.90 Glucose 101 Calcium 9.4 Magnesium Total Bilirubin 0.4 AST 21 ALT 17 Alkaline Phosphatase 77 Troponin I Total Protein 7.5 Albumin 3.5 TSH COVID-19 Source Nasal/Nares SARS-CoV-2 (PCR) Negative Add-On Test Request 03/24/22 03/24/22 03/24/22 10:49 10:49 14:17 WBC RBC Hgb Hct MCV MCH MCHC RDW Plt Count MPV Immature Gran % Neutrophils % Lymphocytes % Monocytes % Eosinophils % Basophils % Nucleated RBC % Absolute Neutrophils Absolute Lymphocytes Absolute Monocytes Absolute Eosinophils Absolute Basophils PT 10.4 INR 1.0 APTT 24.5 Sodium Potassium Chloride Carbon Dioxide Anion Gap BUN Creatinine Est GFR (CKD-EPI 2020) Glucose Calcium Magnesium Total Bilirubin AST ALT Alkaline Phosphatase Troponin I < 50 < 50 Total Protein Albumin TSH COVID-19 Source SARS-CoV-2 (PCR) Add-On Test Request 03/24/22 03/24/22 14:17 14:17 WBC RBC Hgb Hct MCV MCH MCHC RDW Plt Count MPV Immature Gran % Neutrophils % Lymphocytes % Monocytes % Eosinophils % Basophils % Nucleated RBC % Absolute Neutrophils Absolute Lymphocytes Absolute Monocytes Absolute Eosinophils Absolute Basophils PT INR APTT Sodium Potassium Chloride Carbon Dioxide Anion Gap BUN Creatinine Est GFR (CKD-EPI 2020) Glucose Calcium Magnesium 2.0 Total Bilirubin AST ALT Alkaline Phosphatase Troponin I Total Protein Albumin TSH 3.03 COVID-19 Source SARS-CoV-2 (PCR) Add-On Test Request DONE
[2022-03-25 01:10] VITALS: PULSE 70
[2022-03-25 06:59] VITALS: PULSE 76
[2022-03-25 07:13] VITALS: BP 137/83; PULSE 72; RESP 18; TEMP 36.3; O2SAT 96
[2022-03-25] MEDS: Normal Saline Flush 10 ML SYR IV (07:50)
[2022-03-25 09:27] LABS: Abs Immature Grans 0.01 10^3/uL (0.0-0.06); Absolute Basophil Count 0.07 10^3/uL (0.0-0.2); Absolute Eosinophil Count 0.13 10^3/uL (0.0-0.7); Absolute Lymphocyte Count 1.57 10^3/uL (1.2-3.4); Absolute Monocyte Count 0.37 10^3/uL (0.1-0.8); Absolute Neutrophil Count 2.55 10^3/uL (1.2-6.7); Basophils % 1.5; Eosinophils % 2.8; HCT 41.6 % (36.0-46.0); HGB 13.3 g/dL (11.2-15.7); Immature Grans % 0.2; Lymphocytes % 33.4; MCH 30.3 pg (27.0-33.0); MCV 95 fL (80-95); MPV 10.5 fL (8.0-11.0); Monocytes % 7.9; Neutrophils % 54.2; Platelet Count 214 10^3/uL (130-400); RBC 4.39 10^6/uL (3.93-5.22); RDW 13.3 % (11.7-14.6); RDW-SD 46.4 fL
[2022-03-25 10:04] LABS: Anion Gap 6.2 mmol/L (3-11); BUN 17 mg/dL (7-18); CO2 28.8 mmol/L (21.0-32.0); Calcium 9.5 mg/dL (8.5-10.1); Chloride 104 mmol/L (98-107); Estimated GFR 57.31 (mL/min/1.73m2); Glucose 108 mg/dL (74-106); Magnesium 2.1 mg/dL (1.8-2.4); Potassium 4.6 mmol/L (3.5-5.1); Sodium 139 mmol/L (136-145)
[2022-03-25 11:22] VITALS: BP 139/86; PULSE 69; RESP 16; TEMP 36.8; O2SAT 99
--- NOTE | 2022-03-25 11:42 | CHAPLAIN ---
Jailene was dressed and up walking around her room. She is hoping to be discharged today. She came in yesterday for a routine colonoscopy and and was surprised to be admitted because of AFib. She said AFib hasn't been detected since. Jailene is very involved in her community and her latter day, the evangelical latter day in [place]. Their conduit mechanic resigned recently due to conflict initiated by conservative members of the latter day and Jailene is sadden by her conduit mechanic's leaving and the direction the latter day is taking.
--- NOTE | 2022-03-25 12:50 | W.PM.DS.N ---
Date of service: 03/25/22 Time of Service: 14:19 DS: Diagnosis Discharge Diagnosis (1) Paroxysmal A-fib: Status: Acute Asessment and Plan: We talked about the risk of stroke with paroxysmal atrial fibrillation. She understands the role of apixaban and stroke reduction, and at this time she would prefer to forego that treatment and consider the risks and benefits of this therapy with her primary care physician and solar sales associate. She will wear a 30-day event monitor. Discharge Plan Disposition Patient Disposition: HOME Condition: Good Discharge Details Reason For Visit: New Onset Afib Admit Date/Time: 03/24/22 10:09 Admit Provider: Izabella Wesley Attending Provider: Izabella Wesley Primary Care Provider: Lizzy Marin [facility] Hospital Course: Annetta is a 77-year-old woman who presents for colonoscopy. In the periprocedural time, she developed some atrial fibrillation. She was admitted to the hospital, and evaluated with telemetry overnight. She returned to sinus rhythm, and remained hemodynamically stable through the night. Home Meds and New Rx's Prescriptions: New Eliquis 5 mg tablet 5 mg PO BID Qty: 60 3RF Continued triamcinolone acetonide 0.1 % cream 1 applic topical BID Qty: 80 0RF Rx Instructions: apply to psoriasis lisinopril 20 mg tablet 20 mg PO DAILY Qty: 90 5RF Discontinued bisacodyl [Dulcolax (bisacodyl)] 5 mg tablet,delayed release (DR/EC) 5 mg PO ONCE Qty: 4 0RF Rx Instructions: Take according to provider's instructions for colonoscopy prep. polyethylene glycol 3350 17 gram/dose powder 17 g PO ONCE Qty: 238 0RF Rx Instructions: To be taken as directed by prescriber's office for colonoscopy prep. Discharge Instructions Instructions: A-fib (Atrial Fibrillation) (DC), Diverticulosis (DC), Colorectal Polyps (DC) Additional Instructions: Findings: 3 polyps mild diverticulosis Follow up: will depend on pathology results Please call if you develop: fevers >101.5 Nausea or Vomiting Abdominal pain that is not transient Rectal bleeding that is more then a tbsp A hard abdomen and inability to pass gas DAY SURGERY UNIT POST ENDOSCOPY INSTRUCTIONS Instructions for everyone who is given Anesthesia: For your safety, please do the following for the next 24 Hours: a. Do not drive or operate dangerous equipment b. Do not drink alcohol beverages or use any recreational drugs for the first 24 hours or while taking pain medications. The medications in your body may have a reaction that can be dangerous. c. Do not make any important decisions or sign any important papers 1. Generally there are no restrictions on your activity after a day or so has gone by, but you may feel a bit fatigued for a few days. 2. After you arrive home you may have a light meal and return to a normal diet as you can tolerate it without feeling sick to your stomach. 3. After surgery, you may feel pain or discomfort. This should be only transient, but if it persists please contact your doctor. 4. If there are any questions regarding the findings of your procedure, please feel free to contact your doctor. 6. If you are unable to contact your doctor with a problem, contact the hospital at [phone]. 7. Continue all your regular medications unless directed otherwise. I understand the above instructions and have no questions. Signature of Patient or Responsible Adult Escort Date/Time Name of Responsible Adult Escort Signature of Nurse Date/Time Stand Alone Forms: [facility] ([facility]), Nursing Discharge Form Referrals: Lizzy Marin MD, [place] [Primary Care Provider] - 04/01/22 9:00 am Matilde Rivera MD [ [facility] STAFF PHYSICIAN] - (The office will call you with an appointment after reviewing your records.) Izabella Wesley MD [ [facility] STAFF PHYSICIAN] - 04/09/22 8:45 am Activity:: Activity as Tolerated Equipment/Supplies:: No Equipment Needed Diet:: high fiber diet Discharge Orders Discharge Orders: Discharge Order (Routine); Ordered 03/25/22 Ordered By: Aj Qiu Other Ambulatory Orders: NM MPI rest & stress day 2 (Routine) Timeframe: 2 Weeks Facility: [facility] - Location: DIAGNOSTIC IMAGING Ordered By: Edith Reyna Discharge Data Discharge Date/Time-TO BE ENTERED AT DEPARTURE: 03/25/22 14:06 DS: Summary Time Spent with Patient providing and/or coordinating discharge services: Greater than 30 minutes Status at Discharge Functional status at discharge: independent ambulation Overall status at discharge: patient is back to baseline Mental Status: mental status grossly normal Speech and Movement: speech and movement normal Mood: congruent mood Affect: normal affect Exam Const General: cooperative, healthy appearing and comfortable Orientation: awake and oriented x3 Eyes General: appearance normal, both eyes and all related structures Conjunctivae: conjunctivae normal Sclera: sclerae normal Resp Effort & Inspection: normal respiratory effort and able to speak in complete sentences Cardio Jugular venous pressure: no JVD Rate: regular rate GI Inspection: non-distended Palpation: soft, no guarding, no hernias and nontender Auscultation: normal bowel sounds Skin General skin exam: normal turgor Neuro General: patient alert, patient awake and patient oriented x3 Cognition: normal cognition Extrem Right lower extremity: no edema Left lower extremity: no edema Psych Mental Status: mental status grossly normal Speech and Movement: speech and movement normal Mood: congruent mood Affect: normal affect DS: Data Vitals/I&O Vitals and I&O: Vital Signs Temperature 98.2 F 03/25/22 11:22 Temperature Source Tympanic 03/25/22 11:22 Pulse 69 03/25/22 11:22 Pulse Rhythm Regular 03/25/22 08:05 Respiratory Rate 16 03/25/22 11:22 Respiratory Effort 03/25/22 08:05 Respiratory Depth Normal 03/25/22 08:05 Respiratory Pattern Normal 03/25/22 08:05 Blood Pressure 139/86 03/25/22 11:22 Pulse Oximetry 99 03/25/22 11:22 Oxygen Delivery Method Room Air 03/25/22 11:22 Oxygen Flow Rate 0 03/25/22 11:22 Pain Level 0 03/25/22 11:22 Comment 03/25/22 07:13 Intake & Output 03/24/22 03/25/22 03/25/22 23:59 11:59 23:59 Intake Total 1700 / 2620 880 / 880 Balance 1700 / 2620 880 / 880 Intake: IV 810 / 1010 Oral 890 / 1610 870 / 870 Other: Urine Color Yellow Urine Appearance Clear Clear Urine Odor Normal Comment pt reports voiding in toilet without difficulty Voiding Methods Toilet Toilet Data Completed and Pending Labs on day of discharge: Labs from last 24 hours 03/25/22 03/25/22 03/24/22 10:00 09:18 14:17 WBC 4.70 RBC 4.39 Hgb 13.3 Hct 41.6 MCV 95 MCH 30.3 MCHC 32.0 RDW 13.3 Plt Count 214 MPV 10.5 Immature Gran % 0.2 Neutrophils % 54.2 Lymphocytes % 33.4 Monocytes % 7.9 Eosinophils % 2.8 Basophils % 1.5 Nucleated RBC % 0.0 Absolute Neutrophils 2.55 Absolute Lymphocytes 1.57 Absolute Monocytes 0.37 Absolute Eosinophils 0.13 Absolute Basophils 0.07 Sodium 139 Potassium 4.6 Chloride 104 Carbon Dioxide 28.8 Anion Gap 6.2 BUN 17 Creatinine 1.0 Est GFR (CKD-EPI 2020) 57.31 Glucose 108 H Calcium 9.5 Magnesium 2.1 2.0 Troponin I TSH 3.03 Add-On Test Request 03/24/22 03/24/22 14:17 14:17 WBC RBC Hgb Hct MCV MCH MCHC RDW Plt Count MPV Immature Gran % Neutrophils % Lymphocytes % Monocytes % Eosinophils % Basophils % Nucleated RBC % Absolute Neutrophils Absolute Lymphocytes Absolute Monocytes Absolute Eosinophils Absolute Basophils Sodium Potassium Chloride Carbon Dioxide Anion Gap BUN Creatinine Est GFR (CKD-EPI 2020) Glucose Calcium Magnesium Troponin I < 50 TSH Add-On Test Request DONE PFS All Active Problems (Updated 03/24/22 @ 20:56 by Fer Rehman MD) Paroxysmal A-fib (Acute) New onset a-fib (Acute) Throat disorder (Acute 05/12/17) Throat clearing (Acute 05/12/17) Sleep disorder (Chronic 06/02/15) Sensory hearing loss, 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) Reflux esophagitis (Chronic 07/04/17) Psoriasis (Chronic 09/02/14) Osteoporosis (Chronic) Dexa/2005-T-4.5; 2007 T-4.3; 2009-T-4.2; 2011--4.7 SEES SUNNI GERD (gastroesophageal reflux disease) (Chronic 07/14/17) Essential hypertension (Chronic 08/29/13) Actinic keratoses (Acute) Finger deformity, acquired (Acute) Hyponatremia (Acute) Positive colorectal cancer screening using Cologuard test (Acute) Encounter for colorectal cancer screening (Acute) Surgical History History of colonoscopy History of parathyroidectomy (06/02/15) Parathyroidectomy S/P colonoscopy (~03/24/22) Family History Mother , 68 Depression Bladder cancer Father , 83 Heart disease PACEMAKER Stroke MILD Pancreatic cancer Sister Stroke TIA Brother Heart disease Myocardial infarction Maternal Grandfather , 84 Myocardial infarction Parkinson's disease Paternal Grandfather , 86 Heart disease Parkinson's disease Paternal Grandmother Heart disease A-FIB Depression Daughter Depression Brother No problems noted. Brother No problems noted. Daughter No problems noted. Social History Smoking/Tobacco Use Status: Former Tobacco Use tobacco type: cigarettes Quit Date: 05/30/1964 Tobacco: How many years used: 4 Second Hand Exposure: Yes Smoking risk assessment performed?: Yes Alcohol Intake: current Alcohol Intake frequency: a few times a week Alcohol type: wine Drug use: Never Substance use type: does not use Caregiver/Support person: No Household members: none Housing: house Communication Needs: None and Hard of Hearing Do you need help understanding health information?: Rarely Pets and animals: No Sexually active: No Do you think of yourself as: straight/heterosexual Current gender identity: female What is your relationship status?: How often do you talk on the phone with friends or family?: three or more times per week How often do you get together with friends or relatives?: three or more times per week How often do you attend bahai or baptism services?: 4 or more times per year Do you belong to any clubs or organized social groups?: yes Panel score (0-1 are the most socially isolated patients): 3 What type of physical activity do you participate in: walking and other Details: [employer], PT gym, snowshoeing Duration: 30-45 minutes/day Frequency: 5-6 times per week Laxmi/Cheondoism: Christianity Special laxmi needs: No Seatbelt use: always Helmet use: Yes Helmet use: sometimes Drive intox or ride w/intox hi lo driver: No Do you feel safe at home: Yes Do you feel safe in your relationship?: Yes
== END 2022-03-25 14:06 | disposition home or self-care (01) ==
LOC: MS 10:49
PROVIDERS: Internal Medicine; Admitting Provider Surgery; PCP Family Medicine; Visit Provider Surgery
PROC: 0DJD8ZZ Inspection of Lower Intestinal Tract, Via Natural or Artificial Opening Endoscopic (ICD-10-PCS; CPT 45378; principal; 2022-03-24 08:15)
DX: I48.0 Paroxysmal atrial fibrillation (principal); D17.5 Benign lipomatous neoplasm of intra-abdominal organs; D12.2 Benign neoplasm of ascending colon; R19.5 Other fecal abnormalities; L40.9 Psoriasis, unspecified; E89.2 Postprocedural hypoparathyroidism; Z87.891 Personal history of nicotine dependence; I10 Essential (primary) hypertension; I48.92 Unspecified atrial flutter; K21.00 Gastro-esophageal reflux disease with esophagitis, without bleeding; E87.1 Hypo-osmolality and hyponatremia; H90.3 Sensorineural hearing loss, bilateral; M81.0 Age-related osteoporosis without current pathological fracture
CPT/HCPCS: 45380; 36415; 80048; 80053; 87635; 88305; 96360; 96361; 99217; 99219; 83735; 84443; 84484; 85025; 85610; 85730; 93005; 93010; 93306; 99220; G0378

== ENCOUNTER 2022-03-25 13:08 | Outpatient (CLI) | payer MEDICARE, SELFPAY ==
--- NOTE | 2022-04-29 14:48 | W.CARDEVENT ---
Date of service: 04/29/22 Time of Service: 14:49 Cardiac Event Recorder Referring Provider:: Lizzy Marin Indications:: Palpitations Cardiac Event Note: This is a 30-day cardiac event record reportedly ordered for palpitations Predominant rhythm was sinus with an average heart rate of 73. Minimum was 57, maximum 140 There were rare atrial and ventricular ectopic beats There was no atrial fibrillation no high-grade AV block no pauses greater than 3 seconds No patient symptoms were reported that corresponded to any dysrhythmia
== END 2022-03-25 13:09 | disposition home or self-care (01) ==
LOC: CARDOPNVT 13:08
PROVIDERS: PCP Family Medicine; Visit Provider Family Medicine
DX: I48.0 Paroxysmal atrial fibrillation (principal)
CPT/HCPCS: 93270

== ENCOUNTER 2022-12-13 14:12 | Outpatient (CLI) | payer MEDICARE, SELFPAY ==
--- NOTE | 2022-12-13 14:00 | RT.EKG_ITS ---
APPROVED REPORT Exam: Resting ECG Reason for Exam: palpitations Patient Location: O HR:63 bpm ECG Measurements Heart Rate 63 AXIS MN 177 P 9 QRSd 77 QRS 20 QT 390 T 51 QTc 400 Conclusion Sinus rhythm...normal P axis, V-rate 50- 99 Anteroseptal infarct, age indeterminate...Q >35mS, T neg, V1-V2
== END 2022-12-13 14:13 | disposition home or self-care (01) ==
LOC: DI.CM 14:14
PROVIDERS: PCP Family Medicine; Visit Provider Nurse Practitioner Family
DX: I48.0 Paroxysmal atrial fibrillation (principal); R00.2 Palpitations
CPT/HCPCS: 93010

== ENCOUNTER 2022-12-15 04:42 | Outpatient (CLI) | payer MEDICARE, SELFPAY ==
[2022-12-15 12:19] LABS: Abs Immature Grans 0.01 10^3/uL (0.0-0.06); Absolute Basophil Count 0.09 10^3/uL (0.0-0.2); Absolute Eosinophil Count 0.13 10^3/uL (0.0-0.7); Absolute Lymphocyte Count 1.48 10^3/uL (1.2-3.4); Absolute Monocyte Count 0.38 10^3/uL (0.1-0.8); Absolute Neutrophil Count 2.41 10^3/uL (1.2-6.7); Eosinophils % 2.9; HGB 12.9 g/dL (11.2-15.7); Immature Grans % 0.2; Lymphocytes % 32.9; MCH 30.1 pg (27.0-33.0); MCHC 32.3 % (32.0-36.0); MCV 94 fL (80-95); MPV 11.7 fL (8.0-11.0); Monocytes % 8.4; Neutrophils % 53.6; Platelet Count 227 10^3/uL (130-400); RBC 4.28 10^6/uL (3.93-5.22); RDW 12.5 % (11.7-14.6); RDW-SD 43.7 fL
[2022-12-15 12:29] LABS: ALT 24 U/L (14-59); AST 22 U/L (15-37); Albumin 3.7 g/dL (3.4-5.0); Alkaline Phosphatase 72 U/L (46-116); Anion Gap 9.7 mmol/L (3-11); BUN 17 mg/dL (7-18); Bilirubin, Total 0.4 mg/dL (0.2-1.0); CO2 26.3 mmol/L (21.0-32.0); CREATININE 0.9 mg/dL (0.55-1.02); Calcium 9.3 mg/dL (8.5-10.1); Chloride 103 mmol/L (98-107); Estimated GFR 65.03 (mL/min/1.73m2); Glucose 91 mg/dL (74-106); Potassium 3.9 mmol/L (3.5-5.1); Sodium 139 mmol/L (136-145); Total Protein 7.3 g/dL (6.4-8.2)
[2022-12-15 12:37] LABS: TSH (W/Ref FT4) 1.83 uIU/mL (0.36-3.74)
[2022-12-16 19:23] LABS: Lab Add On Test DONE
[2022-12-20 10:11] LABS: Lyme Ab w Rflx to Lyme Confirm Negative (Negative)
[2022-12-21 15:38] LABS: Anaplasma phagocytophilum Negative (Negative); B. miyamotoi PCR Negative (Negative); Babesia divergens/MO-1 Negative (Negative); Babesia duncani Negative (Negative); Babesia microti Negative (Negative); Ehrlichia chaffeensis Negative (Negative); Ehrlichia ewingii/canis Negative (Negative); Ehrlichia muris eauclairensis Negative (Negative)
== END 2022-12-15 04:43 | disposition home or self-care (01) ==
LOC: LOS 04:42
PROVIDERS: PCP Family Medicine; Visit Provider Nurse Practitioner Family
DX: I10 Essential (primary) hypertension (principal); E87.1 Hypo-osmolality and hyponatremia; I48.0 Paroxysmal atrial fibrillation; R42 Dizziness and giddiness
CPT/HCPCS: 36415; 80053; 87798; 84443; 85025; 86618

== ENCOUNTER 2024-02-23 11:12 | Outpatient (CLI) | payer MEDICARE, SELFPAY ==
[2024-02-23 12:42] LABS: ALT 35 U/L (14-59); AST 37 U/L (15-37); Albumin 3.7 g/dL (3.4-5.0); Alkaline Phosphatase 76 U/L (46-116); Anion Gap 5.6 mmol/L (3-11); BUN 16 mg/dL (7-18); Bilirubin, Total 0.46 mg/dL (0.2-1.0); CO2 27.4 mmol/L (21.0-32.0); CREATININE 0.9 mg/dL (0.55-1.02); Calcium 9.5 mg/dL (8.5-10.1); Chloride 101 mmol/L (98-107); Estimated GFR 64.63 (mL/min/1.73m2); Glucose 86 mg/dL (74-106); Potassium 4.2 mmol/L (3.5-5.1); Sodium 134 mmol/L (136-145); Total Protein 7.4 g/dL (6.4-8.2)
== END 2024-02-23 11:13 | disposition home or self-care (01) ==
PROVIDERS: PCP Family Medicine; Visit Provider Family Medicine
DX: I10 Essential (primary) hypertension (principal); Z23 Encounter for immunization; Z00.00 Encounter for general adult medical examination without abnormal findings
CPT/HCPCS: 36415; 80053

== ENCOUNTER 2025-01-31 14:56 | Outpatient (CLI) | payer MEDICARE, SELFPAY ==
--- NOTE | 2025-01-31 15:18 | DI.RAD_ITS ---
Exam(s) XR PELVIS W OBLIQUES 3V EXAM: XR PELVIS W OBLIQUES 3V CLINICAL HISTORY: F/U PELVIC FX. TECHNIQUE: 2D digital imaging was performed. Three views. COMPARISON: CR XR PELVIS 1-2 VIEWS from 12/14/2024 FINDINGS: BONES: There has been no change in the alignment of the fractures of the right superior and inferior pubic rami. There is some callus formation around the fractures. The sacrum is mainly obscured by overlying stool and bowel gas. No bony destructive lesion is seen. JOINTS: No dislocation present. SI joints are not widened. The there is mild spurring at the AC joint. The hip joint spaces are maintained. SOFT TISSUE: Normal. IMPRESSION: No change in alignment of right superior and inferior pubic ramus fractures. DATA REPOSITORY: RADIATION DOSE DELIVERED:
--- NOTE | 2025-01-31 15:19 | DI.RAD_ITS ---
Exam(s) XR CLAVICLE RT EXAM: XR CLAVICLE RT CLINICAL HISTORY: F/U R DISTAL CLAVICLE FX TECHNIQUE: 2D digital imaging was performed. Two views COMPARISON: CR,RF BARIUM SWALLOW ONLY from 06/08/2017 CR XR CLAVICLE RIGHT from 12/14/2024 FINDINGS: BONES: There has been no change in the alignment of the distal clavicle fracture which is mildly displaced. There are multiple right rib fractures. No bony destructive lesion is seen. JOINTS: No dislocation present. SOFT TISSUE: No visible pneumothorax. Calcified mediastinal and hilar lymph nodes are again noted. IMPRESSION: Stable alignment of distal clavicle fracture. DATA REPOSITORY: RADIATION DOSE DELIVERED:
== END 2025-01-31 14:57 | disposition home or self-care (01) ==
LOC: DIORS 14:57
PROVIDERS: PCP Family Medicine; Referring Provider Family Medicine; Visit Provider Student in an Organized Health Care Education/Training Program
DX: S42.031D Displaced fracture of lateral end of right clavicle, subsequent encounter for fracture with routine healing (principal); S32.511D Fracture of superior rim of right pubis, subsequent encounter for fracture with routine healing; S32.591D Other specified fracture of right pubis, subsequent encounter for fracture with routine healing; S32.10XD Unspecified fracture of sacrum, subsequent encounter for fracture with routine healing; W19.XXXD Unspecified fall, subsequent encounter
CPT/HCPCS: 99214; 72190; 73000

== ENCOUNTER 2025-03-01 00:22 | Outpatient (CLI) | payer MEDICARE, SELFPAY ==
[2025-03-01 14:27] LABS: ALT 19 U/L (14-59); AST 25 U/L (15-37); Albumin 3.9 g/dL (3.4-5.0); Alkaline Phosphatase 227 U/L (46-116); Anion Gap 10.6 mmol/L (3-11); BUN 24 mg/dL (7-18); Bilirubin, Total 0.4 mg/dL (0.2-1.0); CO2 25.4 mmol/L (21.0-32.0); Calcium 9.5 mg/dL (8.5-10.1); Chloride 101 mmol/L (98-107); Estimated GFR 64.23 (mL/min/1.73m2); Glucose 84 mg/dL (74-106); Potassium 4.4 mmol/L (3.5-5.1); Sodium 137 mmol/L (136-145); Total Protein 7.6 g/dL (6.4-8.2)
== END 2025-03-01 00:23 | disposition home or self-care (01) ==
LOC: LOS 00:22
PROVIDERS: PCP Family Medicine; Visit Provider Family Medicine
DX: I10 Essential (primary) hypertension (principal)
CPT/HCPCS: 36415; 80053

== ENCOUNTER → 2025-03-14 13:41 | Outpatient (BNVA) | payer MEDICARE, SELFPAY | PROVIDERS: PCP Family Medicine; Referring Provider Family Medicine; Visit Provider Student in an Organized Health Care Education/Training Program | DX: S32.511D Fracture of superior rim of right pubis, subsequent encounter for fracture with routine healing (principal); S32.591D Other specified fracture of right pubis, subsequent encounter for fracture with routine healing; S42.001D Fracture of unspecified part of right clavicle, subsequent encounter for fracture with routine healing | CPT/HCPCS: 99213 ==

== ENCOUNTER → 2025-05-02 12:37 | Outpatient (CLI) | payer MEDICARE, SELFPAY ==
--- NOTE | 2025-05-02 13:06 | DI.RAD_ITS ---
Exam(s) XR HIP PELVIS ADULT BL EXAM: XR HIP PELVIS ADULT BL CLINICAL HISTORY: renewed pain, SACRAL/PELVIC FRACTURE, RT INF/SUPERIOR PUBIC RAMUS. TECHNIQUE: 2D digital imaging was performed. COMPARISON: CR XR PELVIS W OBLIQUES 3V from 01/31/2025 FINDINGS: Is a healing fracture site again noted in the inferior right pubic ramus. There are no new pelvic fractures identified nor hip fractures on either side. No significant hip joint space narrowing. No osseous lesions. SI joints appear age-appropriate. IMPRESSION: No new significant osseous findings. Healing fracture noted in the right inferior pubic ramus. No additional fractures evident. DATA REPOSITORY: RADIATION DOSE DELIVERED:
== END ==
LOC: DI 12:42
PROVIDERS: PCP Family Medicine; Visit Provider Family Medicine
DX: S32.10XA Unspecified fracture of sacrum, initial encounter for closed fracture (principal); S32.9XXA Fracture of unspecified parts of lumbosacral spine and pelvis, initial encounter for closed fracture; S32.591A Other specified fracture of right pubis, initial encounter for closed fracture; S32.511A Fracture of superior rim of right pubis, initial encounter for closed fracture
CPT/HCPCS: 73521